=== PATIENT | male | born 1965 | race Caucasian/White ===

== ENCOUNTER 2022-05-31 17:00 | Emergency (ER) | payer OTHER, BC ==
[2022-05-31 17:55] VITALS: BP 126/83; PULSE 97
[2022-05-31] MEDS ORDERED: Diphtheria,Pertussis(Acell),Tetanus Vaccine 0.5 ML Syringe IM ONE (18:13)
[2022-05-31] MEDS ORDERED: Bacitracin Oint 28.35 GM Tube TOP SCH (21:00)
== END 2022-05-31 18:56 | disposition home or self-care (01) ==
LOC: JP.ED 17:00
DX: S41.111A Laceration without foreign body of right upper arm, initial encounter (principal); S51.811A Laceration without foreign body of right forearm, initial encounter; S51.812A Laceration without foreign body of left forearm, initial encounter; Z23 Encounter for immunization; W45.8XXA Other foreign body or object entering through skin, initial encounter
CPT/HCPCS: 12005; 90471; 90715; 99283-25